=== PATIENT | male | born 1995 | race Caucasian/White ===

== ENCOUNTER 2016-11-22 12:18 | Emergency (ER) | payer OTHER ==
[2016-11-22 12:25] VITALS: BP 136/83; PULSE 64; TEMP 98.4; BMI 25.0
--- NOTE | 2016-11-22 13:11 | PDOC ---
History of Present Illness - General Chief Complaint: Laceration Stated Complaint: LACERATION Time Seen by Provider: 11/22/16 12:43 History Source: Patient Exam Limitations: No Limitations - History of Present Illness Initial Comments: 11/22/16 13:07 21 yr male with c/o slip and fall injured right elbow and lower back on the steps. This happened at work today. no head trauma no loc. pt unsure of tetanus. Past History - Past Medical History Allergies/Adverse Reactions: Allergies Allergy/AdvReac Type Severity Reaction Status Date / Time No Known Allergies Allergy Verified 11/22/16 12:25 Home Medications: Ambulatory Orders Cephalexin [Keflex] 500 mg PO BID #10 capsule 11/22/16 GI Disorders: Yes (FANCONI SYNDROME, kidney disease) - Immunization History Immunization Up to Date: Yes - Psycho/Social/Smoking Cessation Hx Suicidal Ideation: No Smoking History: Never smoked Hx Alcohol Use: No Drug/Substance Use Hx: No *Physical Exam - Vital Signs Last Vital Signs Temp Pulse Resp BP Pulse Ox 98.4 F 64 16 136/83 100 11/22/16 12:19 11/22/16 12:19 11/22/16 12:19 11/22/16 12:19 11/22/16 12:19 - Physical Exam General Appearance: Yes: Nourished, Appropriately Dressed HEENT: positive: EOMI, JS Neck: positive: Supple. negative: Tender Respiratory/Chest: positive: Lungs Clear, Normal Breath Sounds. negative: Chest Tender Cardiovascular: positive: Regular Rhythm, Regular Rate Gastrointestinal/Abdominal: positive: Normal Bowel Sounds, Soft Musculoskeletal: positive: Normal Inspection, Other (ttp right lower paraspinal area soft tissue, no brusing no evidence of trauma ). negative: Vertebral Tenderness Extremity: positive: Normal Capillary Refill, Normal Range of Motion, Other ( right elbow 3cm laceration flap laceration,partial thickness) Integumentary: positive: Normal Color, Dry, Warm Neurologic: positive: Fully Oriented, Alert, Normal Mood/Affect, Normal Response , Motor Strength 5/5 Procedures - Laceration/Wound Repair Right Posterior Elbow Wound Length: 2.6 to 5.0 cm Wound Explored: clean Wound's Depth, Shape: into muscle, flap Irrigated w/ Saline: Yes Betadine Prep: Yes Anesthesia: 1% Lidocaine w/ Epi Amount of Anesthetic (ccs): 5 Wound Repaired With: Sutures Suture Size/Type: 4:0, nylon Number of Sutures: 5 Layer Closure: No Sterile Dressing Applied: Yes ED Treatment Course - RADIOLOGY Radiology Studies Ordered: Category Date Time Status ELBOW-RIGHT [RAD] Stat Radiology 11/22/16 13:05 Ordered SPINE-LUMBAR ONLY [RAD] Stat Radiology 11/22/16 13:05 Ordered Medical Decision Making - Medical Decision Making 11/22/16 13:09 cc: right elbow laceration s/p fall at work on the step injured low back no head trauma pt has FROM of the elbow ttp right lower back no allergies 11/22/16 13:11 will get UA as pt fell on lower back right side to r/o hematuria 11/22/16 13:43 11/22/16 14:38 negative hematuria pt to follow with PMD understands the dc plan and the strict importance of follow up . *DC/Admit/Observation/Transfer Diagnosis at time of Disposition: Laceration Contusion Qualifiers: Encounter type: initial encounter Contusion area: elbow Laterality: right Qualified Code(s): S50.01XA - Contusion of right elbow, initial encounter - Discharge Dispostion Disposition: HOME Condition at time of disposition: Good - Prescriptions Prescriptions: Cephalexin [Keflex] 500 mg PO BID #10 capsule - Referrals Referrals: Yandy Man MD [Primary Care Provider] - - Patient Instructions Printed Discharge Instructions: DI for Laceration Repair Additional Instructions: keep clean and dry remove the dressing in 2 days then gently reapply a clean bandage and re-wrap with cling and jhon bandage to limit range of motion fo the elbow take tylenol for any pain do not get wet suture removal in 12-14 days take the antibiotic to prevent infection for 5 days follow with your doctor in 2-3 days for a follow up wound check - Post Discharge Activity Work/School Note: Back to Work
[2016-11-22] MEDS ORDERED: DIPHTH,PERTUSS(ACELL),TET 0.5 ML DISP.SYRIN IM ONE (13:33)
[2016-11-22] MEDS ORDERED: ACETAMINOPHEN 325 MG TABLET (FP) PO ONE (13:55)
[2016-11-22] MEDS ORDERED: ACETAMINOPHEN 325 MG TABLET (FP) ONE (13:59)
[2016-11-22 14:26] LABS: PH,URINE 6.5 (5.0-8.0); URINE APPEARANCE CLEAR; URINE BILIRUBIN NEGATIVE (NEGATIVE); URINE BLOOD TRACE-INTA (NEGATIVE); URINE COLOR LT. YELLOW; URINE GLUCOSE (UA) 3+ (NEGATIVE); URINE KETONE NEGATIVE (NEGATIVE); URINE LEUK ESTERASE NEGATIVE (NEGATIVE); URINE NITRITE NEGATIVE (NEGATIVE); URINE PROTEIN TRACE (NEGATIVE); URINE UROBILINOGEN 0.2 mg/dL (0.2-1.0)
== END 2016-11-22 14:42 | disposition home or self-care (01) ==
LOC: JERFT 12:18
PROC: 0HQDXZZ Repair Right Lower Arm Skin, External Approach (ICD-10-PCS; principal; 2016-11-22)
PROC: 3E0234Z Introduction of Serum, Toxoid and Vaccine into Muscle, Percutaneous Approach (ICD-10-PCS; 2016-11-22)
DX: S50.01XA Contusion of right elbow, initial encounter (principal); W18.39XA Other fall on same level, initial encounter; Y93.89 Activity, other specified; Y92.9 Unspecified place or not applicable; E72.09 Other disorders of amino-acid transport; N28.9 Disorder of kidney and ureter, unspecified
CPT/HCPCS: 72100-TC; 73070-TC-RT; 81003; 90715; 99281-25